=== PATIENT | male | born 1985 | race Caucasian/White ===

== ENCOUNTER 2020-06-29 22:10 | Emergency (ER) | payer OTHER ==
[~2020-06-29] VITALS: Ht 188 cm; Wt 118.2 kg
[2020-06-29 22:18] VITALS: BP 151/80
--- NOTE | 2020-06-29 22:26 | PHYS DOC ---
General Adult EDM: Chief Complaint: LACERATION/AVULSION HPI: HPI: Patient is a 35 year old male who presents with working at [employer] when the wind was blowing really hard and blew a steel door shot on his left middle fingertip. This caused a U-shaped laceration to the tip of the finger. The cut is not over a joint. He can bend at all joints but is painful. There is 2+ swelling to the tip of the finger and some bruising. Nailbed is intact and there is no laceration or injury to it. Patient states his tetanus is up-to-date. The finger is throbbing at a 6 out of 10. He states there is some tingling to the tip of the finger. (JAYDA BOBO APRN) Review of Systems: Review of Systems: Constitutional: Denies fever or chills. [] Eyes: Denies change in visual acuity. [] HENT: Denies nasal congestion or sore throat. [] Respiratory: Denies cough or shortness of breath. [] Cardiovascular: Denies chest pain. + Left middle finger tip 1+ edema. [] GI: Denies abdominal pain, nausea, vomiting, bloody stools or diarrhea. [] : Denies dysuria. [] Musculoskeletal: Denies back pain. +Left middle fingertip joint pain. [] Integument: Denies rash. +Middle finger laceration with bruising [] Neurologic: Denies headache, focal weakness or sensory changes. [] Endocrine: Denies polyuria or polydipsia. [] Lymphatic: Denies swollen glands. [] Psychiatric: Denies depression or anxiety. [] (JAYDA BOBO APRN) Heart Score: Risk Factors: Risk Factors: DM, Current or recent (<one month) smoker, HTN, HLP, family history of CAD, obesity. Risk Scores: Score 0 - 3: 2.5% MACE over next 6 weeks - Discharge Home Score 4 - 6: 20.3% MACE over next 6 weeks - Admit for Clinical Observation Score 7 - 10: 72.7% MACE over next 6 weeks - Early Invasive Strategies (JAYDA BOBO APRN) Allergies: Allergies: Allergies Coded Allergies Type Severity Reaction Last Updated Verified No Known Drug Allergies 06/29/20 No (JAYDA BOBO APRN) Physical Exam: PE: Constitutional: Well developed, well nourished, no acute distress, non-toxic appearance. [] HENT: Normocephalic, atraumatic, bilateral external ears normal, oropharynx moist, no oral exudates, nose normal. [] Eyes: PERRLA, EOMI, conjunctiva normal, no discharge. [] Neck: Normal range of motion, no tenderness, supple, no stridor. [] Cardiovascular:Heart rate regular rhythm, no murmur [] Lungs & Thorax: Bilateral breath sounds clear to auscultation [] Abdomen: Bowel sounds normal, soft, no tenderness, no masses, no pulsatile masses. [] Skin: Warm, dry, no erythema, no rash. U-shaped 1 cm laceration to tip of left middle finger with bruising. [] Back: No tenderness, no CVA tenderness. [] Extremities: Middle fingertip tenderness, no cyanosis, no clubbing, ROM intact, middle fingertip 1+ edema. [] Neurologic: Alert and oriented X 3, normal motor function, normal sensory function, no focal deficits noted. [] Psychologic: Affect normal, judgement normal, mood normal. [] (JAYDA BOBO APRN) EKG: EKG: [] (JAYDA BOBO APRN) Radiology/Procedures: Radiology/Procedures: [] Impression: [facility] [address] [facility] [place] [address] IMAGING REPORT Signed PATIENT: MARY BANSAL ACCOUNT: [id number] : 1985 LOCATION: ER AGE: 35 SEX: M EXAM STATUS: PRE ER ORD. PHYSICIAN: JAYDA BOBO APRN REASON: slammed tip of left middle finger in door PROCEDURE: HAND LEFT 3V XR HAND_LEFT 3 VIEWS History: Reason: slammed tip of left middle finger in door / Spl. Instructions: / History: Technique: 3 views left hand Comparison: None. Findings: Normal alignment. No fracture. Third digit distal soft tissue swelling. Impression: 1. No acute osseous abnormality. Electronically signed by: Josh Benton DO (06/29/2020 10:39 PM) [facility] DICTATED and SIGNED BY: JOSH BENTON DO DATE: 06/29/20 [id number] (JAYDA BOBO APRN) Course & Med Decision Making: Course & Med Decision Making Pertinent Labs and Imaging studies reviewed. (See chart for details) See HPI. Radial pulse strong and present. Cap refill less than 2 seconds. Hand pink warm and dry. No foreign bodies are seen. Laceration repair Location: Left middle tip of finger U shaped and approximately 1 cm in length. Edges are together and approximated. There is no gaping wound. Local anesthesia: None Interrupted sutures/Internal sutures: Dermabond Nerve/ligament/muscle damage: None Cleaning and irrigation: Chlorhexidine and saline The appropriate timeout was taken. The area was prepped and draped in the usual sterile fashion. The wound was copiously irrigated with normal saline and chlorhexidine. Patient tolerated well without complication. Dressing was applied to the area follow-up education is given to observe for signs and sympt oms of infection, bleeding and to follow-up promptly if these occur. Patient can return in 48 hours for a wound recheck. Sutures to be removed in 7 to 10 days. [] (JAYDA BOBO APRN) Course & Med Decision Making I oversaw on the above date of service of this patient and discussed the care with the INTERVENTIONAL TECH. I agree with the findings, plan of care, and disposition as documented. (RUPAL GALARZA DO) Maria E Disclaimer: Maria E Disclaimer: This electronic medical record was generated, in whole or in part, using a voice recognition dictation system. (JAYDA BOBO APRN) Departure Departure Impression: Primary Impression: Laceration Disposition: 01 DC HOME SELF CARE/HOMELESS Condition: STABLE Patient Instructions: Crush Injury, Fingers or Toes, Fingertip Laceration Additional Instructions: Keep clean and covered. Use ice and ibuprofen. Watch for signs of infection. JAYDA BOBO APRN Jun 29, 2020 22:26 RUPAL GALARZA DO Jun 30, 2020 00:36
--- NOTE | 2020-06-29 22:41 | RAD ---
XR HAND_LEFT 3 VIEWS History: Reason: slammed tip of left middle finger in door / Spl. Instructions: / History: Technique: 3 views left hand Comparison: None. Findings: Normal alignment. No fracture. Third digit distal soft tissue swelling. Impression: 1. No acute osseous abnormality. Electronically signed by: Josh Benton DO (06/29/2020 10:39 PM) [facility] [place]
== END 2020-06-29 22:55 | disposition home or self-care (01) ==
LOC: ER 22:10
DX: S61.213A Laceration without foreign body of left middle finger without damage to nail, initial encounter (principal); W22.8XXA Striking against or struck by other objects, initial encounter; Y93.89 Activity, other specified; Y92.69 Other specified industrial and construction area as the place of occurrence of the external cause; Y99.0 Civilian activity done for income or pay
CPT/HCPCS: 12001; 73130; 99283

== ENCOUNTER → 2021-06-06 | Outpatient (CLI) | payer OTHER | LOC: LAB 19:41 | PROVIDERS: ATTEND Internal Medicine Pulmonary Disease | DX: R53.81 Other malaise (principal); R09.81 Nasal congestion; Z20.822 Contact with and (suspected) exposure to COVID-19 | CPT/HCPCS: 87426; U0003; U0005 ==